=== PATIENT | female | born 1995 | race African-American/Black ===

== ENCOUNTER 2018-08-13 00:17 | Emergency (ER) | payer MEDICAID ==
[~2018-08-13] VITALS: Ht 162.6 cm; Wt 87.0 kg
[~2018-08-13 00:17] MED LIST: ARIP15TA2 PO; CLON2TAB PO; CLOZ100T31 MT; DIPH50CA38 PO; DIVA-75 MT; FLUO-124 PO; HYDR50TA55 MT; LACO200T2 MT; LAM1 PO; SERT50TA12 MT
[2018-08-13] MEDS ORDERED: LORAZEPAM 0.5MG TABLET PO ONE (01:15)
[2018-08-13 01:29] LABS: EOSINOPHILS % 1.5 % (0.0-5.0); HEMOGLOBIN. 13.7 g/dL (12.0-16.0); MEAN CORPUSCULAR HEMOGLOBIN 29.7 pg (28.0-32.0); MEAN CORPUSCULAR VOLUME 84.6 fL (81.0-99.0); MONOCYTES % 10.9 % (2.0-8.0); NEUTROPHILS % 48.6 % (40.0-76.0); PLATELET 161 x1000/uL (130-400); RED BLOOD CELL COUNT 4.61 mill/uL (4.2-5.4); RED CELL DISTRIBUTION WIDTH 13.6 % (11.6-14.6)
[2018-08-13 01:35] LABS: CHLORIDE 108 mEq/L (98-107)
[2018-08-13 01:36] LABS: HCG SCREEN NEGATIVE
[2018-08-13 01:48] LABS: ETHANOL BLOOD < 10 mg/dL
[2018-08-13 06:39] LABS: CLARITY URINE CLOUDY (CLEAR); COLOR URINE YELLOW (YELLOW); KETONES URINE TRACE (NEGATIVE); LEUKOCYTE ESTERASE URINE 1+ (NEGATIVE); NITRITE URINE NEGATIVE (NEGATIVE); OCCULT BLOOD URINE 3+ (NEGATIVE); PROTEIN URINE TRACE (NEGATIVE); SPECIFIC GRAVITY URINE 1.028 (1.005-1.030)
[2018-08-13 06:49] LABS: *AMPHETAMINES SCREEN URINE NEGATIVE (NEGATIVE); *BARBITURATES SCREEN URINE NEGATIVE (NEGATIVE); *BENZODIAZEPINES SCREEN URINE NEGATIVE (NEGATIVE); *COCAINE SCREEN URINE NEGATIVE (NEGATIVE); METHADONE URINE SCREEN NEGATIVE (NEGATIVE); OPIATES URINE SCREEN NEGATIVE (NEGATIVE)
[2018-08-13 06:50] LABS: CANNABINOID URINE SCREEN NEGATIVE (NEGATIVE); PHENCYCLIDINE URINE SCREEN NEGATIVE (NEGATIVE)
[2018-08-13 14:07] VITALS: BP 128/82
== END 2018-08-13 14:07 | disposition home or self-care (01) ==
LOC: ER 00:28
DX: R45.851 Suicidal ideations (principal); Z98.890 Other specified postprocedural states; Z79.899 Other long term (current) drug therapy
CPT/HCPCS: 36415; 80048; 80305; 80307; 80320; 80329; 84703; 99284; G0480

== ENCOUNTER 2018-08-20 20:17 | Emergency (ER) | payer MEDICAID ==
[~2018-08-20] VITALS: Ht 162.6 cm; Wt 91.0 kg
[2018-08-20] MEDS ORDERED: LEVETIRACETAM 1000MG/100ML 100 ML IV ONE (20:45)
[2018-08-20] MEDS ORDERED: SODIUM CHLORIDE 0.9% 1,000 ML IV ONE (21:33)
[2018-08-20 21:34] LABS: CLARITY URINE CLEAR (CLEAR); COLOR URINE YELLOW (YELLOW); KETONES URINE TRACE (NEGATIVE); LEUKOCYTE ESTERASE URINE NEGATIVE (NEGATIVE); NITRITE URINE NEGATIVE (NEGATIVE); OCCULT BLOOD URINE NEGATIVE (NEGATIVE); PROTEIN URINE TRACE (NEGATIVE); SPECIFIC GRAVITY URINE 1.033 (1.005-1.030)
[2018-08-20 21:45] LABS: *AMPHETAMINES SCREEN URINE NEGATIVE (NEGATIVE); *BARBITURATES SCREEN URINE NEGATIVE (NEGATIVE); *COCAINE SCREEN URINE NEGATIVE (NEGATIVE); CANNABINOID URINE SCREEN NEGATIVE (NEGATIVE); METHADONE URINE SCREEN NEGATIVE (NEGATIVE); OPIATES URINE SCREEN NEGATIVE (NEGATIVE); PHENCYCLIDINE URINE SCREEN NEGATIVE (NEGATIVE)
[2018-08-20 21:46] LABS: BASOPHILS % 0.9 % (0.0-2.0); EOSINOPHILS % 1.9 % (0.0-5.0); HEMATOCRIT. 39.7 % (36.0-48.0); HEMOGLOBIN. 13.6 g/dL (12.0-16.0); MEAN CORPUSCULAR VOLUME 84.4 fL (81.0-99.0); MEAN PLATELET VOLUME 8.5 fl (7.4-10.4); MONOCYTES % 10.8 % (2.0-8.0); NEUTROPHILS % 46.4 % (40.0-76.0); PLATELET 198 x1000/uL (130-400); RED CELL DISTRIBUTION WIDTH 13.9 % (11.6-14.6)
[2018-08-20 21:47] LABS: *BENZODIAZEPINES SCREEN URINE PRESUMTIVE POSITIVE (NEGATIVE)
[2018-08-20 21:50] LABS: CHLORIDE 110 mEq/L (98-107)
[2018-08-20 21:54] LABS: ETHANOL BLOOD < 10 mg/dL
[2018-08-21 00:40] VITALS: BP 122/78
== END 2018-08-21 00:45 | disposition home or self-care (01) ==
LOC: ER 20:17
DX: G40.909 Epilepsy, unspecified, not intractable, without status epilepticus (principal); F31.9 Bipolar disorder, unspecified; Z91.018 Allergy to other foods
CPT/HCPCS: 36415; 80053; 80165; 80305; 80320; 81003; 81025; 85025; 96365; 96366; 99283; J1953; J7030; G0480

== ENCOUNTER 2024-08-23 16:30 | Emergency (ER) | payer MEDICAID, OTHER ==
[~2024-08-23] VITALS: Ht 172.7 cm; Wt 109.0 kg
[~2024-08-23 16:30] MED LIST changes: +CLON-866 PO; -CLON2TAB PO; +CLOZ100T13 MT; -CLOZ100T31 MT; -FLUO-124 PO; +FLUO-413 PO; +SERT-422 MT; -SERT50TA12 MT
[2024-08-23 16:33] VITALS: O2SAT 100
[2024-08-23 17:25] LABS: BASOPHILS % 0.7 % (0.0-2.0); EOSINOPHILS % 0.1 % (0.0-5.0); HEMATOCRIT. 40.7 % (36.0-48.0); HEMOGLOBIN. 13.5 g/dL (12.0-16.0); LYMPHOCYTES % 36.6 % (20.0-50.0); MEAN CORPUSCULAR HEMOGLOBIN 29.3 pg (28.0-32.0); MEAN CORPUSCULAR HGB CONC 33.1 g/dL (31.0-37.0); MEAN CORPUSCULAR VOLUME 88.7 fL (81.0-99.0); MEAN PLATELET VOLUME 9.3 fl (7.4-10.4); MONOCYTES % 7.5 % (2.0-8.0); NEUTROPHILS % 55.1 % (40.0-76.0); PLATELET 209 x1000/uL (130-400); RED BLOOD CELL COUNT 4.59 mill/uL (4.2-5.4); RED CELL DISTRIBUTION WIDTH 13.6 % (11.6-14.6); WHITE BLOOD COUNT 9.7 x1000/uL (4.5-11.0)
[2024-08-23 17:50] LABS: CHLORIDE 104 mEq/L (98-107); POTASSIUM 4.8 mEq/L (3.5-5.1); SODIUM 139 mEq/L (136-145)
[2024-08-23 17:51] LABS: CALCIUM 9.3 mg/dL (8.7-10.4); CARBON DIOXIDE 23 mEq/L (21-32)
[2024-08-23 17:55] LABS: HCG SCREEN NEGATIVE
[2024-08-23 17:56] LABS: ETHANOL BLOOD < 10 mg/dL (<10); GLUCOSE 96 mg/dL (70-105); UREA NITROGEN BLOOD 9 mg/dL (9-23)
[2024-08-23] MEDS: LAMOTRIGINE 100MG TABLET PO SCH (18:28)
[2024-08-23] MEDS: LACOSAMIDE 100MG TABLET PO SCH (18:28)
[2024-08-23 19:23] VITALS: BP 129/83; PULSE 99; RESP 18; TEMP 36.4; O2SAT 99
== END 2024-08-23 19:48 | disposition home or self-care (01) ==
LOC: ER 16:30
DX: G40.909 Epilepsy, unspecified, not intractable, without status epilepticus (principal); Z79.899 Other long term (current) drug therapy; F31.9 Bipolar disorder, unspecified
CPT/HCPCS: 80048; 80320; 84703; 85025; 36415; 80339; 99283; Z7610 ×3; A4606; G0480